=== PATIENT | male | born 1980 | race African-American/Black ===

== ENCOUNTER 2016-11-21 08:16 | Outpatient (RCR) | payer OTHER ==
[~2016-11-21 08:16] MED LIST: TYLENOL/CODEINE1 ML PO; ZITHROMAX 250M250 MG PO
== END 2017-02-19 ==
LOC: WSOH
DX: H10.211 Acute toxic conjunctivitis, right eye (principal); X58.XXXA Exposure to other specified factors, initial encounter; Y99.0 Civilian activity done for income or pay